=== PATIENT | female | born 1990 | race Caucasian/White ===

== ENCOUNTER → 2017-04-10 | Outpatient (CLI) | payer OTHER ==
[2017-04-10 16:25] LABS: ALANINE AMINOTRANSFERASE 26 U/L (9-52); ALBUMIN 4.7 g/dL (3.5-5.0); ALKALINE PHOSPHATASE 54 U/L (38-126); ANION GAP 12 (5-19); ASPARTATE AMINO TRANSFERASE 21 U/L (14-36); BILIRUBIN,DIRECT 0.2 mg/dL (0.0-0.4); BILIRUBIN,TOTAL 0.9 mg/dL (0.2-1.3); BLOOD UREA NITROGEN 10 mg/dL (7-20); CALCIUM 9.6 mg/dL (8.4-10.2); CARBON DIOXIDE 27 mmol/L (22-30); CHLORIDE 103 mmol/L (98-107); CREATININE RESULT 0.61 mg/dL (0.52-1.25); GLUCOSE 85 mg/dL (75-110); POTASSIUM 4.6 mmol/L (3.6-5.0); TOTAL PROTEIN 7.5 g/dL (6.3-8.2)
--- NOTE | 2017-04-16 13:49 | HISTORY AND PHYSICAL E ---
History and Physical NAME: MARILU MORTON : 1990 AGE: 26Y ADMITTED: 04/10/2017 ROOM: HISTORY OF PRESENT ILLNESS: This is a new patient, 46-year-old female, presented from [facility] regarding abdominal pain, right upper quadrant, change in bowel habits, abnormal liver functions, high bilirubin. Gallbladder ultrasound negative. SOCIAL HISTORY: . Does not smoke, does not drink. SURGICAL HISTORY: Unremarkable. REVIEW OF SYSTEMS: HEAD, EYES, EARS, NOSE, THROAT: Negative. RESPIRATORY: Negative. CARDIAC: Negative. ENDOCRINE: Negative. GASTROINTESTINAL: Abdominal pain, bloating - right upper quadrant. Abnormal liver function. ONCOLOGY/HEMATOLOGY: Negative. NEUROLOGY/PSYCHOLOGY: Depression, anxiety. FAMILY HISTORY: Father has liver disease. Mom is alive. PHYSICAL EXAMINATION: GENERAL: Pleasant, 26. VITAL SIGNS: Blood pressure 90/60, pulse 80, respirations 18. Temperature is 98. HEAD, EYES, EARS, NOSE, THROAT: Normal. ABDOMEN: Soft. NEUROLOGIC: Exam negative. MEDICATIONS: 1. Abilify. 2. Zoloft. CONCLUSION: ABDOMINAL PAIN. PLAN: 1. Needs to undergo upper endoscopy. This needs to be done in the OR with anesthesia standby. 2. Meanwhile, the patient will have HIDA scan. 3. We will do fasting bilirubin, direct and indirect chem profile. DICTATING PHYSICIAN: SANJUANA HAWKINS M.D. [id number] [id number] PHY#: [id number] ID: [id number] JOB#: [id number] ACCT: [id number] cc:SANJUANA HAWKINS M.D. >
== END ==
LOC: OD 15:00
PROVIDERS: ATTEND Specialist
DX: C25.0 Malignant neoplasm of head of pancreas (principal); R94.5 Abnormal results of liver function studies
CPT/HCPCS: 36415; 80053; 82105; 86301

== ENCOUNTER 2017-04-18 08:32 | Day surgery (SDC) | payer OTHER ==
[~2017-04-18 08:32] MED LIST: EPINEPHRINE INJ 1 MG/10 ML DISP.SYRIN ONE; FENTANYL CITRATE INJ/PF 100 MCG/2 ML AMPUL ONE; FLUMAZENIL INJ 0.5 MG/5 ML VIAL IV ONE; GLYCOPYRROLATE INJ 0.4 MG/2 ML VIAL ONE; NALOXONE HCL INJ/PF 0.4 MG/1 ML SDV ONE; ONDANSETRON HCL INJ/PF 4 MG/2 ML SDV ONE
[2017-04-18] MEDS: MIDAZOLAM 2 MG/2 ML INJ ONE ×2 (09:30→09:34)
[2017-04-18 10:49] VITALS: BP 106/71
[2017-04-18 10:57] LABS: ABSOLUTE EOSINOPHILS # (AUTO) 0.4 10^3/uL (0.0-0.6); ABSOLUTE LYMPHOCYTES (AUTO) 2.2 10^3/uL (0.5-4.7); ABSOLUTE MONOCYTES (AUTO) 0.4 10^3/uL (0.1-1.4); ABSOLUTE NEUT (AUTO) 3.1 10^3/uL (1.7-8.2); BASOPHILS % (AUTO) 0.2 % (0-2); EOSINOPHILS % (AUTO) 6.6 % (0-6); HEMATOCRIT 34.6 % (36.0-47.0); HEMOGLOBIN 11.6 g/dL (12.0-15.5); HGB HCT DIFFERENCE 0.2; LYMPHOCYTES % (AUTO) 36.2 % (13-45); MEAN CORPUSCULAR HEMOGLOBIN 30.2 pg (27.0-33.4); MEAN CORPUSCULAR HGB CONC 33.6 g/dL (32.0-36.0); MEAN CORPUSCULAR VOLUME 90 fl (80-97); MONOCYTES % (AUTO) 6.6 % (3-13); RED BLOOD COUNT 3.84 10^6/uL (3.72-5.28); RED CELL DISTRIBUTION WIDTH 13.4 % (11.5-14.0); SEGMENTED NEUTROPHILS % (AUTO) 50.4 % (42-78); WHITE BLOOD COUNT 6.1 10^3/uL (4.0-10.5)
[2017-04-18 11:07] LABS: ALANINE AMINOTRANSFERASE 21 U/L (9-52); ALBUMIN 4.1 g/dL (3.5-5.0); ALKALINE PHOSPHATASE 45 U/L (38-126); AMYLASE 39 U/L (30-110); ANION GAP 11 (5-19); ASPARTATE AMINO TRANSFERASE 21 U/L (14-36); BILIRUBIN,DIRECT 0.3 mg/dL (0.0-0.4); BLOOD UREA NITROGEN 14 mg/dL (7-20); CARBON DIOXIDE 23 mmol/L (22-30); CHLORIDE 107 mmol/L (98-107); CREATININE RESULT 0.69 mg/dL (0.52-1.25); GLUCOSE 127 mg/dL (75-110); LIPASE 44.4 U/L (23-300); SODIUM 140.9 mmol/L (137-145); TOTAL PROTEIN 6.7 g/dL (6.3-8.2)
--- NOTE | 2017-04-19 12:39 | OPERATIVE REPORT E ---
Operative Report NAME: MARILU MORTON : 1990 AGE: 26Y DATE OF SURGERY: 04/18/2017 ROOM: PREOPERATIVE DIAGNOSIS: Abdominal pain. POSTOPERATIVE DIAGNOSES: 1. Esophagitis, mild. 2. Benign-looking GE junction polyp, 3 mm. 3. Gastritis, mild. 4. Esophagitis, mild. PROCEDURE: Esophagoscopy, gastroscopy, duodenoscopy. SURGEON: SANJUANA HAWKINS M.D. ANESTHESIA: Versed 5 mg and Fentanyl 100 mcg. TISSUE REMOVED OR ALTERED: Gastric biopsy for H. pylori. Biopsy from the GE junction polyp. DESCRIPTION OF PROCEDURE: The baby scope passed under guided vision, no difficulties. Esophagoscopy: Junction at 35 cm. Distal esophagus shows mild esophagitis. At the GE junction there was a flat-looking polyp about 4 or 5 mm in size, benign looking, biopsy obtained. Mild amount of heme. No bleeding. Gastroscopy: No ulcers. Mild gastritis. Biopsy for H. pylori. Duodenoscopy: Duodenal bulb shows no ulcers. Descending duodenum normal. CONCLUSIONS: 1. GE junction polyp, benign, biopsy obtained. 2. Mild esophagitis. 3. Mild gastritis. PLAN: 1. Hold aspirin and nonsteroidals for a week. 2. Awaiting biopsy results. 3. Lab studies. Awaiting HIDA scan. DICTATING PHYSICIAN: SANJUANA HAWKINS M.D. [id number] [id number] Y#: [id number] ID: [id number] JOB#: [id number] ACCT: [id number] cc:[facility] SANJUANA HAWKINS M.D. >
--- NOTE | 2017-04-19 12:45 | DISCHARGE SUMMARY E ---
Discharge Summary NAME: MARILU MORTON : 1990 AGE: 26Y ADMITTED: 04/18/2017 DISCHARGED: 04/18/2017 HISTORY AND HOSPITAL COURSE: Patient is a 26-year-old female. Underwent upper scope today for abdominal pain. ALLERGIES: 1. NAPROXEN. 2. FIRE ANTS. PROCEDURE/FINDINGS: Upper scope shows: GE junction with benign looking polyp, about 3 to 5 mm. Biopsy obtained. Mild esophagitis. Gastritis. DIAGNOSTICS: Awaiting HIDA scan. DISCHARGE PLAN: 1. Soft diet. 2. Hold aspirin and nonsteroidals. 3. Start patient on PPI pending biopsy results. Will discharge the patient on Protonix 40 mg once daily. DICTATING PHYSICIAN: SANJUANA HAWKINS M.D. 1265M [id number] PHY#: [id number] ID: [id number] JOB#: [id number] ACCT: [id number] cc:SANJUANA HAWKINS M.D. >
== END 2017-04-18 10:55 | disposition home or self-care (01) ==
LOC: END 08:32
PROVIDERS: ATTEND Specialist
PROC: 0DB48ZX Excision of Esophagogastric Junction, Via Natural or Artificial Opening Endoscopic, Diagnostic (ICD-10-PCS; 2017-04-18)
PROC: 0DB68ZX Excision of Stomach, Via Natural or Artificial Opening Endoscopic, Diagnostic (ICD-10-PCS; principal; 2017-04-18 09:00)
DX: K29.70 Gastritis, unspecified, without bleeding (principal); K20.9 Esophagitis, unspecified; K31.7 Polyp of stomach and duodenum; K25.9 Gastric ulcer, unspecified as acute or chronic, without hemorrhage or perforation; F41.9 Anxiety disorder, unspecified; F32.9 Major depressive disorder, single episode, unspecified; Z88.6 Allergy status to analgesic agent; Z79.899 Other long term (current) drug therapy
CPT/HCPCS: 43239; 36415; 82150; 83690; 85025; 80053; 88342 ×2; 88305 ×2; J2250; J3010; J0171; J2310; J2405; J3490

== ENCOUNTER → 2017-04-30 | Outpatient (CLI) | payer OTHER ==
--- NOTE | 2017-04-30 11:10 | RADIOLOGY REPORT (SQ) ---
EXAM DESCRIPTION: CT ABDOMEN COMBO COMPLETED DATE/TIME: 04/30/2017 9:28 am REASON FOR STUDY: ABD PAIN (R10.9) R10.9 UNSPECIFIED ABDOMINAL PAIN COMPARISON: None. TECHNIQUE: CT scan of the abdomen performed with and without intravenous contrast, and with oral con trast. Contrasted imaging performed using helical scanning technique with dynamic intravenous contras t injection. Images reviewed with lung, soft tissue, and bone windows. Reconstructed coronal and sagi ttal MPR images reviewed. Delayed images for evaluation of the urinary system also acquired and evalu ated. All images stored on PACS. All CT scanners at this facility use dose modulation, iterative reconstruction, and/or weight based d osing when appropriate to reduce radiation dose to as low as reasonably achievable (ALARA). [facility]: Dose Right [facility]: CareDose [facility]: Dose Right [facility]: Teradose 4D [facility]: [employer] CONTRAST TYPE AND DOSE: contrast/concentration: Isovue 370.00 mg/ml; Total Contrast Delivered: 42.0 ml; Total Saline Delivered: 72.0 ml RENAL FUNCTION: Creatinine 0.69 RADIATION DOSE: Up-to-date CT equipment and radiation dose reduction techniques were employed. CTDIv ol: 3.4 - 19.7 mGy. DLP: 638 mGy-cm.. LIMITATIONS: None. FINDINGS: NONCONTRASTED IMAGING: No significant renal or bladder calcifications. No other significan t organ calcifications. POSTCONTRASTED IMAGING: LOWER CHEST: No significant findings. No nodules or infiltrates. LIVER: Normal size. No masses. No dilated ducts. SPLEEN: Normal size. No focal lesions. PANCREAS: No masses. No significant calcifications. No adjacent inflammation or peripancreatic fluid collections. Pancreatic duct not dilated. GALLBLADDER: No identified stones by CT criteria. No inflammatory changes to suggest cholecystitis. ADRENAL GLANDS: No significant masses or asymmetry. RIGHT KIDNEY AND URETER: No solid masses. No significant calcifications. No hydronephrosis or hyd roureter. LEFT KIDNEY AND URETER: No solid masses. No significant calcifications. No hydronephrosis or hydr oureter. AORTA AND VESSELS: No aneurysm. No dissection. Renal arteries, SMA, celiac without stenosis. RETROPERITONEUM: No retroperitoneal adenopathy, hemorrhage or masses. BOWEL AND PERITONEAL CAVITY: No masses or inflammatory changes. No free fluid or peritoneal masses. APPENDIX: Normal. ABDOMINAL WALL: No masses. No hernias. BONES: No significant or acute findings. OTHER: No other significant finding. IMPRESSION: NO SIGNIFICANT OR ACUTE ABNORMALITY IN THE ABDOMEN. TECHNICAL DOCUMENTATION: JOB ID: [id number] Quality ID # [id number]: Final reports with documentation of one or more dose reduction techniques (e.g., Au tomated exposure control, adjustment of the mA and/or kV according to patient size, use of iterative reconstruction technique) 2010 [employer]- All Rights Reserved
== END ==
LOC: RAD 08:33
PROVIDERS: ATTEND Specialist
DX: R10.9 Unspecified abdominal pain (principal)
CPT/HCPCS: 74170

== ENCOUNTER → 2017-05-30 | Outpatient (CLI) | payer OTHER ==
[2017-05-30 15:35] LABS: ABSOLUTE EOSINOPHILS # (AUTO) 0.1 10^3/uL (0.0-0.6); ABSOLUTE LYMPHOCYTES (AUTO) 3.1 10^3/uL (0.5-4.7); ABSOLUTE MONOCYTES (AUTO) 0.5 10^3/uL (0.1-1.4); ABSOLUTE NEUT (AUTO) 3.8 10^3/uL (1.7-8.2); BASOPHILS % (AUTO) 0.6 % (0-2); EOSINOPHILS % (AUTO) 1.6 % (0-6); HEMATOCRIT 37.5 % (36.0-47.0); HEMOGLOBIN 12.5 g/dL (12.0-15.5); LYMPHOCYTES % (AUTO) 40.9 % (13-45); MEAN CORPUSCULAR HEMOGLOBIN 30.1 pg (27.0-33.4); MEAN CORPUSCULAR HGB CONC 33.5 g/dL (32.0-36.0); MEAN CORPUSCULAR VOLUME 90 fl (80-97); MONOCYTES % (AUTO) 6.9 % (3-13); RED BLOOD COUNT 4.17 10^6/uL (3.72-5.28); WHITE BLOOD COUNT 7.6 10^3/uL (4.0-10.5)
== END ==
LOC: OD 13:26
PROVIDERS: ATTEND Specialist
DX: R10.9 Unspecified abdominal pain (principal)
CPT/HCPCS: 36415; 85025

== ENCOUNTER 2017-06-14 06:03 | Day surgery (SDC) | payer OTHER ==
--- NOTE | 2017-06-07 14:41 | HISTORY AND PHYSICAL E ---
History and Physical NAME: MARILU MORTON : 1990 AGE: 26Y ADMITTED: 06/14/2017 ROOM: CHIEF COMPLAINT: Abdominal pain. Patient scheduled for colonoscopy to be done in the OR. REFERRING: DIANE. We started seeing patient in April regarding abdominal pain, right upper quadrant, and bloating. Patient presented at this time regarding abdominal pain, constipation. SOCIAL HISTORY: . Does not smoke. Does not drink. REVIEW OF SYSTEMS: CARDIOVASCULAR: Negative. ENDOCRINE: Negative. RESPIRATORY: Negative. GASTROINTESTINAL: Abdominal pain, right upper quadrant. ONCOLOGY/HEMATOLOGY: Negative. NEUROLOGIC: Anxiety, depression. FAMILY HISTORY: Father is alive and has liver disease. Mom is alive. She has ovarian disease. MEDICATIONS: 1. Abilify. 2. Zoloft. 3. Ibuprofen. 4. Protonix. PHYSICAL EXAMINATION: GENERAL: Pleasant. VITAL SIGNS: Blood pressure is 90/60. Weight 117. Pulse is 78. Temperature is 98. HEAD, EYES, EARS, NOSE, THROAT: Normal. ABDOMEN: Soft. NEUROLOGIC: Exam negative. LABORATORY: Chemistry profile is negative. The patient's alpha-fetoprotein is normal. CA 19-9 is normal. Patient did have abdominal CT 04/30/2017. It shows as follows: No significant acute abnormalities in the abdomen. This was done in the hospital on 04/30/2017. Upper endoscopy was done. It shows the following: The patient has chronic gastritis. No bacteria. No H. pylori. Gastroesophageal biopsy shows esophagitis. Patient did have ulcer with inflammation noted at the GE junction. The patient did have upper endoscopy showing benign looking GE junction, polyp 3 mm. GE junction polyp biopsy obtained. CONCLUSION: Abdominal pain. PLAN: Colonoscopy to be done in the OR with Anesthesia standby. DICTATING PHYSICIAN: SANJUANA HAWKINS M.D. [id number] [id number] PHY#: [id number] ID: [id number] JOB#: [id number] ACCT: [id number] cc:[facility] SANJUANA AJ M.D. >
--- NOTE | 2017-06-07 14:43 | HISTORY AND PHYSICAL E ---
History and Physical NAME: MARILU MORTON : 1990 AGE: 26Y ADMITTED: 06/14/2017 ROOM: Patient admitted for upper endoscopy. CHIEF COMPLAINT: Abdominal pain. HISTORY: Patient admitted regarding abdominal pain. END OF DICTATION DICTATING PHYSICIAN: SANJUANA HAWKINS M.D. [id number] [id number] PHY#: [id number] ID: [id number] JOB#: [id number] ACCT: [id number] cc: >
[2017-06-11 09:58] LABS: HEMOGLOBIN 13.8 g/dL (12.0-15.5); HGB HCT DIFFERENCE 1.4; MEAN CORPUSCULAR HEMOGLOBIN 30.4 pg (27.0-33.4); MEAN CORPUSCULAR HGB CONC 34.5 g/dL (32.0-36.0); MEAN CORPUSCULAR VOLUME 88 fl (80-97); RED BLOOD COUNT 4.54 10^6/uL (3.72-5.28); RED CELL DISTRIBUTION WIDTH 13.6 % (11.5-14.0); WHITE BLOOD COUNT 5.5 10^3/uL (4.0-10.5)
[~2017-06-14 06:03] MED LIST changes: -EPINEPHRINE INJ 1 MG/10 ML DISP.SYRIN ONE; -FENTANYL CITRATE INJ/PF 100 MCG/2 ML AMPUL ONE; -FLUMAZENIL INJ 0.5 MG/5 ML VIAL IV ONE; -GLYCOPYRROLATE INJ 0.4 MG/2 ML VIAL ONE; +LACTATED RINGERS 1000 ML IV PRN; +LIDOCAINE 0.5% INJ-PF (5 MG/ML) 50 ML SDV SUBCUT PRN; -NALOXONE HCL INJ/PF 0.4 MG/1 ML SDV ONE; -ONDANSETRON HCL INJ/PF 4 MG/2 ML SDV ONE
[2017-06-14] MEDS ORDERED: GLUCAGON,HUMAN RECOMB 1 MG INJ ONE (07:17)
[2017-06-14] MEDS ORDERED: LIDOCAINE 2% JELLY 30 ML TUBE ONE (07:17)
[2017-06-14] MEDS ORDERED: PROPOFOL INJ 200 MG/20 ML VIAL IV ONE (08:02)
[2017-06-14] MEDS ORDERED: DIPHENHYDRAMINE HCL 50 MG/ML VIAL IV PRN (08:12)
[2017-06-14] MEDS ORDERED: MEPERIDINE HCL/PF INJ 25 MG/1 ML DISP.SYRIN IV PRN (08:12)
[2017-06-14] MEDS ORDERED: MORPHINE SULFATE 10 MG/ML INJ IV PRN (08:12)
[2017-06-14] MEDS ORDERED: PROMETHAZINE HCL INJ 25 MG/1 ML VIAL IV PRN ×2 (08:12→09:11)
[2017-06-14] MEDS ORDERED: FENTANYL CITRATE INJ/PF 100 MCG/2 ML AMPUL IV PRN ×3 (08:12)
[2017-06-14] MEDS ORDERED: LIDOCAINE 2% VISCOUS SOLN 20 ML UDCUP PO PRN (09:10)
[2017-06-14] MEDS ORDERED: ACETAMINOPHEN 325 MG TABLET PO PRN (09:10)
[2017-06-14] MEDS ORDERED: SIMETHICONE 80 MG TAB.CHEW PO PRN (09:12)
[2017-06-14 09:41] LABS: ABSOLUTE EOSINOPHILS # (AUTO) 0.1 10^3/uL (0.0-0.6); ABSOLUTE LYMPHOCYTES (AUTO) 1.9 10^3/uL (0.5-4.7); ABSOLUTE MONOCYTES (AUTO) 0.3 10^3/uL (0.1-1.4); ABSOLUTE NEUT (AUTO) 4.5 10^3/uL (1.7-8.2); BASOPHILS % (AUTO) 0.4 % (0-2); EOSINOPHILS % (AUTO) 0.8 % (0-6); HEMATOCRIT 39.8 % (36.0-47.0); HEMOGLOBIN 13.7 g/dL (12.0-15.5); HGB HCT DIFFERENCE 1.3; LYMPHOCYTES % (AUTO) 28.3 % (13-45); MEAN CORPUSCULAR HEMOGLOBIN 30.7 pg (27.0-33.4); MEAN CORPUSCULAR HGB CONC 34.5 g/dL (32.0-36.0); MEAN CORPUSCULAR VOLUME 89 fl (80-97); MONOCYTES % (AUTO) 4.9 % (3-13); RED BLOOD COUNT 4.47 10^6/uL (3.72-5.28); RED CELL DISTRIBUTION WIDTH 13.5 % (11.5-14.0); SEGMENTED NEUTROPHILS % (AUTO) 65.6 % (42-78); WHITE BLOOD COUNT 6.9 10^3/uL (4.0-10.5)
[2017-06-14 10:05] LABS: AMYLASE 65 U/L (30-110); CHOLESTEROL 195.06 mg/dL (0-200); Direct HDL 44 mg/dL (>40); TRIGLYCERIDES 65 mg/dL (<150)
[2017-06-14 10:13] LABS: DIRECT LDL 135 mg/dL (<100)
[2017-06-14 10:19] LABS: ERYTHROCYTE SEDIMENTATION RATE 11 mm/hr (0-20)
[2017-06-14 10:20] LABS: C-REACTIVE PROTEIN < 5.0 mg/L (<10.0)
[2017-06-14 10:58] VITALS: BP 106/67
--- NOTE | 2017-06-14 13:34 | DISCHARGE SUMMARY E ---
Discharge Summary NAME: MARILU MORTON : 1990 AGE: 26Y ADMITTED: 06/14/2017 DISCHARGED: 06/14/2017 PROCEDURE: Colonoscopy. HISTORY: Patient is 26. Allergic to NAPROXEN. She did have recent upper endoscopy. It shows reflux. Benign GE junction polyp. She is on Protonix. Today's colonoscopy was successful. I saw no polyps. No malignancy. DISCHARGE PLAN: 1. Continue her medications which include Abilify 2 mg, control, Protonix 1 tablet p.o. b.i.d., Zoloft 100 mg. 2. I will go ahead and do baseline chem profile. I will do CRP, chem profile, and repeat CBC with sed rate, amylase and lipase. DICTATING PHYSICIAN: SANJUANA HAWKINS M.D. [id number] [id number] PHY#: [id number] ID: [id number] JOB#: [id number] ACCT: [id number] cc:[facility] SANJUANA HAWKINS M.D. >
--- NOTE | 2017-06-14 13:35 | OPERATIVE REPORT E ---
Operative Report NAME: MARILU MORTON : 1990 AGE: 26Y DATE OF SURGERY: 06/14/2017 ROOM: PREOPERATIVE DIAGNOSES: Severe abdominal pain and constipation. POSTOPERATIVE DIAGNOSES: 1. Redundant colon. 2. External hemorrhoids. OPERATION: Colonoscopy. SURGEON: SNAJUANA HAWKINS M.D. ANESTHESIA: Done in the OR with anesthesia standby. TISSUE REMOVED OR ALTERED: None. PROCEDURE: Rectal exam: External hemorrhoids. Sigmoid descending colon: Redundant, tortous sigmoid descending colon. Splenic curve. Transverse colon is inverted, V shaped. Difficult to intubate but with good sedation of propofol, we were able to straighten the scope and get into ascending colon and cecum. The orifice of the appendix visualized. Cecum normal. Ascending colon normal. Transverse colon normal. Sigmoid descending colon normal. External hemorrhoids, otherwise, normal. No polyps. No malignancy. Redundant colon, especially sigmoid descending. High splenic curve. Inverted transverse colon, V shape. PLAN: Full liquid diet today. Hold nonsteroidal and aspirin for 5 days. Her preop white count was normal at 5.5. Hemoglobin 13 and hematocrit 40. Assurance. Patient to see us in the office in the next few days. DICTATING PHYSICIAN: SANJUANA HAWKINS M.D. [id number] [id number] Y#: [id number] ID: [id number] JOB#: [id number] ACCT: [id number] cc:[facility] SANJUANA YADAV M.D. >
== END 2017-06-14 10:10 | disposition home or self-care (01) ==
LOC: OROUT 06:03
PROVIDERS: ATTEND Specialist
PROC: 0DJD8ZZ Inspection of Lower Intestinal Tract, Via Natural or Artificial Opening Endoscopic (ICD-10-PCS; principal; 2017-06-14 08:15)
DX: R10.9 Unspecified abdominal pain (principal); K59.00 Constipation, unspecified; K64.4 Residual hemorrhoidal skin tags; Q43.8 Other specified congenital malformations of intestine; K21.9 Gastro-esophageal reflux disease without esophagitis; Z79.899 Other long term (current) drug therapy; Z79.1 Long term (current) use of non-steroidal anti-inflammatories (NSAID); Z88.6 Allergy status to analgesic agent
CPT/HCPCS: 45378; 36415 ×2; 82150; 85025; 85027; 85652; 81025; 86140; 80061; J1610; J2704; 810